=== PATIENT | female | born 1995 | race Caucasian/White ===

== ENCOUNTER 2017-03-10 00:06 | Emergency (ER) | payer OTHER, MEDICAID ==
[~2017-03-10] VITALS: Ht 167.6 cm; Wt 50.8 kg
[2017-03-10] MEDS ORDERED: AMOXICILLIN500 MG ORAL (00:30)
[2017-03-10] MEDS ORDERED: PredniSONE 20mg tab ORAL ONE (00:30)
[2017-03-10] MEDS ORDERED: IBUPROFEN600 MG ORAL (00:31)
--- NOTE | 2017-03-10 00:31 | Emergency Room Report ---
History of Present Illness General Chief Complaint: Sore Throat Source: Patient Present Illness HPI This 21-year-old female with no past medical history. She presents with chief complaint of sore throat for last 2 weeks. Worse the last week. Initially had fever. No nausea no vomiting. Mild congestion. 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 Denies any other complaint. Worse with swallowing. Pain is 7/10. Allergies: Coded Allergies: No Known Allergies (Unverified , 03/10/17) Patient History Past Medical History: see triage record, old chart reviewed Past Surgical History: none Pertinent Family History: none Social History: Denies: smoking Last Menstrual Period: YESTERDAY Now: No Immunizations: other Reviewed Nursing Documentation: PMH: Agreed, PSxH: Agreed Nursing Documentation-PMH Past Medical History: No Stated History Review of Systems Eye: Denies: blurred vision, eye pain ENT: Reports: throat pain, throat swelling, Denies: ear pain, nose congestion Respiratory: Denies: cough, shortness of breath Cardiovascular: Denies: chest pain, palpitations Gastrointestinal: Denies: abdominal pain, diarrhea, nausea, vomiting Musculoskeletal: Denies: back pain, joint pain Skin: Denies: rash Neurological: Denies: headache, numbness Endocrine: Denies: increased thirst, increased urine Hematologic/Lymphatic: Denies: easy bruising All Other Systems: negative except mentioned in HPI Physical Exam Vital Signs Date Time Temp Pulse Resp B/P Pulse Ox O2 Delivery O2 Flow Rate FiO2 03/10/17 00:12 97.9 100 18 109/74 97 Room Air vitals normal Sp02 EP Interpretation: reviewed, normal General Appearance: well appearing, no apparent distress, alert Head: normocephalic, atraumatic Eyes: bilateral eye EOMI, bilateral eye PERRL ENT: hearing grossly normal, tonsillar swelling, pharyngeal erythema, tonsillar exudate - Worse on the left Neck: full range of motion, supple, no meningismus Respiratory: chest non-tender, lungs clear, normal breath sounds Cardiovascular #1: regular rate, rhythm, no murmur Gastrointestinal: normal bowel sounds, non tender, no mass, no organomegaly, no bruit, non-distended Musculoskeletal: back normal, gait/station normal, normal range of motion Psychiatric: mood/affect normal Skin: warm/dry Medical Decision Making Diagnostic Impression: Primary Impression: Acute tonsillitis Qualified Codes: J03.00 - Acute streptococcal tonsillitis, unspecified ER Course Patient with tonsillitis with exudates. Most likely strep. No evidence of peritonsillar abscess or neoplastic process or Roel angina. No evidence of retropharyngeal abscess. We'll discharge home. Last Vital Signs Date Time Temp Pulse Resp B/P Pulse Ox O2 Delivery O2 Flow Rate FiO2 03/10/17 00:12 97.9 100 18 109/74 97 Room Air Status: improved Disposition: HOME, SELF-CARE Condition: Stable Scripts Ibuprofen* (MOTRIN*) 600 Mg Tablet 600 MG ORAL THREE TIMES A DAY, #30 TAB 0 Refills Prov: YUMI RAJAN M.D. 03/10/17 Amoxicillin* (AMOXIL*) 500 Mg Capsule 500 MG ORAL THREE TIMES A DAY, #21 CAP Prov: YUMI RAJAN M.D. 03/10/17 Patient Instructions: Strep Throat Additional Instructions: Followup with your DrLisette in 7 days. Return of worse. YUMI RAJAN M.D. March 10, 2017 00:31
[2017-03-10 00:36] VITALS: BP_SYST 109; BP_SYST 111; BP_DIAS 72; BP_DIAS 74
== END 2017-03-10 00:36 | disposition home or self-care (01) ==
LOC: EMR 00:30
DX: J03.90 Acute tonsillitis, unspecified (principal); J02.9 Acute pharyngitis, unspecified
CPT/HCPCS: 99284

== ENCOUNTER 2017-10-30 10:44 | Emergency (ER) | payer MEDICAID, OTHER ==
[~2017-10-30] VITALS: Ht 165.1 cm; Wt 50.8 kg
[~2017-10-30 10:44] MED LIST: AMOXICILLIN500 MG ORAL; IBUPROFEN600 MG ORAL
[2017-10-30 10:59] VITALS: BP 122/86
[2017-10-30 11:29] VITALS: BP 122/86
[2017-10-30] MEDS ORDERED: AMOXICILLIN500 MG ORAL (11:30)
[2017-10-30] MEDS ORDERED: IBUPROFEN600 MG ORAL (11:30)
--- NOTE | 2017-10-30 14:22 | Emergency Room Report ---
History of Present Illness General Chief Complaint: Sore Throat Source: Patient Present Illness HPI 21-year-old female with sore throat for 2 days Located midline of throat, no associated cough, rhinorrhea, fever chills or body aches no History of frequent pharyngitis No sick contacts Did not take any [id number] medications Allergies: Coded Allergies: No Known Allergies (Unverified , 03/10/17) Patient History Past Medical History: none Past Surgical History: none Pertinent Family History: none Social History: Denies: smoking, alcohol use, drug use Last Menstrual Period: 10/22/17 Now: No Immunizations: UTD Reviewed Nursing Documentation: PMH: Agreed, PSxH: Agreed Nursing Documentation-PMH Past Medical History: No Stated History Review of Systems All Other Systems: negative except mentioned in HPI Physical Exam Vital Signs Date Time Temp Pulse Resp B/P (MAP) Pulse Ox O2 Delivery O2 Flow Rate FiO2 10/30/17 10:49 98.2 101 18 122/86 99 Room Air Sp02 EP Interpretation: reviewed, normal General Appearance: normal inspection, well appearing, no apparent distress, alert, GCS 15, non-toxic Head: normocephalic, atraumatic Eyes: bilateral eye PERRL, bilateral eye EOMI ENT: normal ENT inspection, hearing grossly normal, normal pharynx, no angioedema, normal voice, TMs + canals normal, uvula midline, moist mucus membranes, pharyngeal erythema Neck: normal inspection, full range of motion, supple, thyroid normal, no meningismus, no bony tend Respiratory: normal inspection, lungs clear, normal breath sounds, no rhonchi, no respiratory distress, no retraction, no accessory muscle use, no wheezing, speaking full sentences Cardiovascular #1: regular rate, rhythm, no edema, no JVD, normal capillary refill Gastrointestinal: normal inspection, normal bowel sounds, non tender, soft, no mass, no peritonitis, non-distended, no guarding, no hernia, no pulsatile mass Genitourinary: no CVA tenderness Musculoskeletal: normal inspection, back normal, normal range of motion, no calf tenderness, pelvis stable, Oracio's Sign negative Neurologic: normal inspection, alert, oriented x3, responsive, application systems architect III-XII nml as tested, motor strength/tone normal, cerebellar normal, normal gait, speech normal Psychiatric: normal inspection, judgement/insight normal, mood/affect normal, no suicidal/homicidal ideation, no delusions Skin: normal inspection, normal color, no rash Lymphatic: normal inspection, no adenopathy Medical Decision Making Diagnostic Impression: Primary Impression: Sore throat ER Course patient has mild pharyngeal erythema, no exudates Vital signs stable, afebrile Not septic appearing We'll treat as empiric strep given the isolated sore throat with erythema, and without associated viral symptoms such as cough and rhinorrhea ER course: Patient has remained stable during ED stay. Disposition: Patient is to be discharged to home. Prescriptions given are amoxicillin, ibuprofen Patient is instructed to follow up with their primary care doctor within 5 days. Strict return precautions discussed with patient such as fever, chills, worsening/severe pain, nausea, vomiting, which may indicate severe illness. Patient verbalizes understanding and agrees with plan. Please note that this Emergency Department Report was dictated using [employer] worker technology software, occasionally this can lead to erroneous entry secondary to interpretation by the dictation equipment Last Vital Signs Date Time Temp Pulse Resp B/P (MAP) Pulse Ox O2 Delivery O2 Flow Rate FiO2 10/30/17 11:29 98.2 65 18 122/86 99 Room Air Status: improved Disposition: HOME, SELF-CARE Condition: Improved Scripts Ibuprofen* (MOTRIN*) 600 Mg Tablet 600 MG ORAL THREE TIMES A DAY for sore throat for 7 Days, #30 TAB 0 Refills Prov: ZAC ERICKSON M.D. 10/30/17 Amoxicillin* (AMOXIL*) 500 Mg Capsule 500 MG ORAL THREE TIMES A DAY for 7 Days, #21 CAP Prov: ZAC ERICKSON M.D. 10/30/17 Referrals: [facility],REFERRING (PCP) Patient Instructions: Pharyngitis, [id number] Additional Instructions: - Take all antibiotics until finished - Take motrin every 8 hours with food for sore throat ZAC ERICKSON M.D. Oct 30, 2017 14:22
== END 2017-10-30 11:40 | disposition home or self-care (01) ==
LOC: EMR 11:29
DX: J02.9 Acute pharyngitis, unspecified (principal)
CPT/HCPCS: 99284